=== PATIENT | female | born 1955 ===

== ENCOUNTER 2021-04-13 09:47 | Outpatient (CLI) | payer OTHER | END 2021-04-13 09:49 | disposition home or self-care (01) | LOC: SONOGRAMA 09:47 | PROVIDERS: ATTEND Pathology Anatomic Pathology & Clinical Pathology | DX: D34 Benign neoplasm of thyroid gland (principal) ==

== ENCOUNTER 2021-09-28 11:37 | Outpatient (CLI) | payer OTHER | END 2021-09-28 11:41 | disposition home or self-care (01) | LOC: SONOGRAMA 11:37 | PROVIDERS: ATTEND Pathology Anatomic Pathology & Clinical Pathology | DX: E04.2 Nontoxic multinodular goiter (principal) ==